=== PATIENT | male | born 1940 | race Two or more races ===

== ENCOUNTER 2021-04-08 23:00 | Inpatient (IN) | payer MEDICARE, BC ==
[2021-04-09 00:53] VITALS: BMI 26.2
[2021-04-09] MEDS ORDERED: Dextrose 5% in Water 1,000 ML IV PRN (05:50)
[2021-04-09] MEDS ORDERED: Dextrose 50% Abboject 50 ML SYRINGE SLOW IVP PRN (05:50)
[2021-04-09] MEDS ORDERED: HumaLOG 300 UNITS/3 ML VIAL SC PRN ×2 (05:50)
[2021-04-09] MEDS ORDERED: Acetaminophen 650 MG Suppository PR PRN (05:52)
[2021-04-09] MEDS ORDERED: Acetaminophen 325 MG TAB PO PRN (05:52)
[2021-04-09] MEDS ORDERED: Ondansetron ODT 4 MG TAB PO PRN (05:52)
[2021-04-09] MEDS ORDERED: Ondansetron PF 4 MG/2 ML Vial IVP PRN (05:52)
[2021-04-09 08:11] LABS: #Eosinphils 0.2 thou/uL (0.0-0.7); #Lymphocytes 1.2 thou/uL (1.20-3.40); #Monocytes 0.9 thou/uL (0.11-0.59); #Neutrophils 5.1 thou/uL (1.40-6.50); %Basophils 0.1 % (0.0-1.0); %Eosinophils 2.1 % (0.0-10.0); %Lymphocytes 15.9 % (21.0-51.0); %Monocytes 12.4 % (0.0-10.0); %Neutrophils 69.4 % (42.0-75.0); Hemoglobin 8.1 g/dL (14.0-18.0); Mean Corpuscular HGB CONC 32.7 g/dL (32.0-36.0); Mean Corpuscular Hemoglobin 30.6 pg (27.0-31.0); Mean Corpuscular Volume 93.7 fL (78.0-98.0); Mean Platelet Volume 8.8 fL (7.4-10.4); Platelet Count 176 thou/uL (130-400); RBC Distribution Width 13.7 % (11.5-14.5); Red Blood Cell (RBC) Count 2.66 mill/uL (4.70-6.10); White Blood Cell (WBC) Count 7.4 thou/uL (4.8-10.8)
[2021-04-09 08:31] LABS: Anion Gap 14 mmol/L (10-20); BUN (Urea Nitrogen) 106 mg/dL (8.4-25.7); Calc. Creatinine Clearance 13 mL/min (70-130); Carbon Dioxide 24 mmol/L (23-31); Chloride 101 mmol/L (98-107); Potassium 4.9 mmol/L (3.5-5.1); Sodium 134 mmol/L (136-145)
[2021-04-09 08:32] LABS: ALT (SGPT) Less than 7 U/L (8-55); AST (SGOT) 13 U/L (5-34); Albumin 3.1 g/dL (3.4-4.8); Alkaline Phosphatase 68 U/L (40-110); Bilirubin, Total 0.9 mg/dL (0.2-1.2); Calcium 8.6 mg/dL (7.8-10.44); Globulin 2.9 g/dL (2.4-3.5); Glucose 85 mg/dL (83-110)
[2021-04-09] MEDS: cefTRIAXone\\ROCEPHIN 1 GM in Sodium Chloride 0.9% 100 ML IVPB SCH (08:34)
[2021-04-09] MEDS: Azithromycin 500 MG in Sodium Chloride 0.9% 250 ML 250 ML IVPB SCH (10:17)
[2021-04-09 10:55] LABS: INR-International Normal Ratio 1.3; Prothrombin Time 16.3 sec (12.0-14.7)
[2021-04-09 10:56] LABS: PTT 41.2 sec (22.9-36.1)
[2021-04-09 10:59] LABS: Anion Gap 14 mmol/L (10-20); BUN (Urea Nitrogen) 104 mg/dL (8.4-25.7); Calc. Creatinine Clearance 13 mL/min (70-130); Calcium 8.5 mg/dL (7.8-10.44); Carbon Dioxide 23 mmol/L (23-31); Chloride 102 mmol/L (98-107); Glucose 139 mg/dL (83-110); Potassium 4.8 mmol/L (3.5-5.1); Sodium 134 mmol/L (136-145)
[2021-04-09] MEDS ORDERED: Carbidopa/Levodopa 25-100 mg Tablet PO SCH (17:45)
[2021-04-09] MEDS ORDERED: Levothyroxine Sodium 100 MCG TAB PO SCH (17:45)
[2021-04-09] MEDS: Sodium Chloride 0.9% 1,000 ML IV SCH (18:30)
[2021-04-09 18:58] LABS: SARS-CoV-2 PCR by NAA Not Detected (NotDetected)
[2021-04-09 19:51] LABS: SARS-CoV-2 IgG Ab Non-Reactive (NonReactive)
[2021-04-09 19:57] LABS: SARS-CoV-2 IgG Index 0.15 S/CO (< 1.40)
[2021-04-09] MEDS: Carbidopa/Levodopa 25-100 mg Tablet PO SCH (21:13)
[2021-04-10] MEDS: Sodium Chloride 0.9% 1,000 ML IV SCH ×2 (03:36→04:47)
[2021-04-10] MEDS: Levothyroxine Sodium 100 MCG TAB PO SCH (04:52)
[2021-04-10] MEDS: Carbidopa/Levodopa 25-100 mg Tablet PO SCH ×3 (08:10→20:32)
[2021-04-10] MEDS: cefTRIAXone\\ROCEPHIN 1 GM in Sodium Chloride 0.9% 100 ML IVPB SCH (08:10)
[2021-04-10] MEDS: Azithromycin 500 MG in Sodium Chloride 0.9% 250 ML 250 ML IVPB SCH (08:10)
[2021-04-10 08:19] LABS: #Eosinphils 0.1 thou/uL (0.0-0.7); #Lymphocytes 0.8 thou/uL (1.20-3.40); #Monocytes 0.8 thou/uL (0.11-0.59); #Neutrophils 4.8 thou/uL (1.40-6.50); %Basophils 0.3 % (0.0-1.0); %Eosinophils 2.1 % (0.0-10.0); %Lymphocytes 12.7 % (21.0-51.0); %Monocytes 11.5 % (0.0-10.0); %Neutrophils 73.5 % (42.0-75.0); Hemoglobin 8.2 g/dL (14.0-18.0); Mean Corpuscular Hemoglobin 31.2 pg (27.0-31.0); Mean Corpuscular Volume 94.4 fL (78.0-98.0); Mean Platelet Volume 8.7 fL (7.4-10.4); Platelet Count 173 thou/uL (130-400); RBC Distribution Width 13.7 % (11.5-14.5); Red Blood Cell (RBC) Count 2.64 mill/uL (4.70-6.10); White Blood Cell (WBC) Count 6.6 thou/uL (4.8-10.8)
[2021-04-10 08:33] LABS: Bilirubin Negative (Negative); Blood, Urine 1+ (Negative); Clarity Clear (Clear); Glucose, Urine (Dipstick) Normal (Negative); Ketone, Urine Negative (Negative); Leukocyte 250 Leu/uL (Negative); Nitrite Negative (Negative); Protein, Urine (Dipstick) 70 mg/dL (Neg-Trace); Specific Gravity, Urine 1.014 (1.002-1.036); Squamous Epithelial None Seen HPF (0-3); Urobilinogen Normal mg/dL (Less than 2)
[2021-04-10 08:34] LABS: Bacteria/HPF Rare-Few HPF (None Seen)
[2021-04-10 08:34] LABS: Anion Gap 16 mmol/L (10-20); BUN (Urea Nitrogen) 92 mg/dL (8.4-25.7); Calc. Creatinine Clearance 14 mL/min (70-130); Calcium 8.4 mg/dL (7.8-10.44); Carbon Dioxide 20 mmol/L (23-31); Chloride 105 mmol/L (98-107); Glucose 85 mg/dL (83-110); Potassium 4.7 mmol/L (3.5-5.1); Sodium 136 mmol/L (136-145)
[2021-04-10 08:36] LABS: Urine Culture Reflex Yes Yes
[2021-04-10 08:58] LABS: Creatinine, Urine 62.82 mg/dL (63-166)
[2021-04-10] MEDS ORDERED: Sodium Bicarbonate 75 MEQ in Sodium Chloride 0.45% 1,000 ML IV SCH (14:00)
[2021-04-10] MEDS ORDERED: Amiodarone 200 MG TAB PO SCH (17:00)
[2021-04-10] MEDS ORDERED: Cefdinir 300 MG CAP PO SCH (21:00)
[2021-04-11] MEDS ORDERED: Sodium Bicarbonate 75 MEQ in Sodium Chloride 0.45% 1,000 ML IV SCH (02:47)
[2021-04-11] MEDS: Levothyroxine Sodium 100 MCG TAB PO SCH (06:00)
[2021-04-11 06:50] LABS: #Eosinphils 0.2 thou/uL (0.0-0.7); #Monocytes 0.8 thou/uL (0.11-0.59); #Neutrophils 7.1 thou/uL (1.40-6.50); %Basophils 0.2 % (0.0-1.0); %Eosinophils 2.6 % (0.0-10.0); %Lymphocytes 10.5 % (21.0-51.0); %Monocytes 8.3 % (0.0-10.0); %Neutrophils 78.3 % (42.0-75.0); Hemoglobin 9.8 g/dL (14.0-18.0); Mean Corpuscular HGB CONC 32.7 g/dL (32.0-36.0); Mean Corpuscular Hemoglobin 30.9 pg (27.0-31.0); Mean Corpuscular Volume 94.4 fL (78.0-98.0); Mean Platelet Volume 8.8 fL (7.4-10.4); Platelet Count 202 thou/uL (130-400); RBC Distribution Width 13.9 % (11.5-14.5); Red Blood Cell (RBC) Count 3.17 mill/uL (4.70-6.10)
[2021-04-11 07:10] LABS: Albumin 3.2 g/dL (3.4-4.8); Anion Gap 15 mmol/L (10-20); BUN (Urea Nitrogen) 79 mg/dL (8.4-25.7); BUN/Creatinine Ratio 17.71; Calc. Creatinine Clearance 16 mL/min (70-130); Calcium 9.1 mg/dL (7.8-10.44); Carbon Dioxide 22 mmol/L (23-31); Chloride 102 mmol/L (98-107); Glucose 107 mg/dL (83-110); Phosphorus 4.7 mg/dL (2.3-4.7); Potassium 4.5 mmol/L (3.5-5.1); Sodium 134 mmol/L (136-145)
[2021-04-11] MEDS: Amiodarone 200 MG TAB PO SCH ×2 (08:46→16:58)
[2021-04-11] MEDS: Carbidopa/Levodopa 25-100 mg Tablet PO SCH ×3 (08:47→20:30)
[2021-04-11] MEDS: Cefdinir 300 MG CAP PO SCH (08:47)
[2021-04-11] MEDS ORDERED: Fluticasone Propionate Nasal Spray 16 gm Bottle NASAL SCH (09:00)
[2021-04-11] MEDS: Fluticasone Propionate Nasal Spray 16 gm Bottle NASAL SCH ×2 (10:18→21:12)
[2021-04-11] MEDS ORDERED: Furosemide 40 MG/4 ML VIAL SLOW IVP SCH (10:59)
[2021-04-11] MEDS ORDERED: Zinc Sulfate 220 MG CAP PO SCH (12:30)
[2021-04-11] MEDS ORDERED: Ascorbic Acid 500 mg Chewable Tablet PO SCH (12:30)
[2021-04-11] MEDS ORDERED: Docusate 100 MG CAP PO SCH (20:45)
[2021-04-12] MEDS: Levothyroxine Sodium 100 MCG TAB PO SCH (05:30)
[2021-04-12] MEDS ORDERED: Ascorbic Acid 500 mg Chewable Tablet PO SCH (09:00)
[2021-04-12] MEDS: Carbidopa/Levodopa 25-100 mg Tablet PO SCH ×3 (09:16→21:31)
[2021-04-12] MEDS: Zinc Sulfate 220 MG CAP PO SCH (09:16)
[2021-04-12] MEDS: Cefdinir 300 MG CAP PO SCH (09:16)
[2021-04-12] MEDS: Amiodarone 200 MG TAB PO SCH ×2 (09:16→15:08)
[2021-04-12] MEDS: Docusate 100 MG CAP PO SCH (09:17)
[2021-04-12] MEDS: Ascorbic Acid 500 mg Chewable Tablet PO SCH (09:17)
[2021-04-12] MEDS: Fluticasone Propionate Nasal Spray 16 gm Bottle NASAL SCH ×3 (09:18→21:50)
[2021-04-12] MEDS ORDERED: FLU VACC QS2021-22(65YR UP)/PF 240 MCG/0.7 ML SYRINGE IM ONE (09:30)
[2021-04-12] MEDS ORDERED: Tamsulosin HCl 0.4 MG CAP PO SCH ×3 (10:30→21:30)
[2021-04-12] MEDS ORDERED: Finasteride 5 MG TAB PO SCH (10:30)
[2021-04-12 12:25] LABS: #Eosinphils 0.1 thou/uL (0.0-0.7); #Lymphocytes 0.6 thou/uL (1.20-3.40); #Monocytes 0.8 thou/uL (0.11-0.59); #Neutrophils 7.2 thou/uL (1.40-6.50); %Basophils 0.4 % (0.0-1.0); %Eosinophils 1.4 % (0.0-10.0); %Lymphocytes 6.8 % (21.0-51.0); %Monocytes 8.5 % (0.0-10.0); %Neutrophils 82.8 % (42.0-75.0); Hemoglobin 9.3 g/dL (14.0-18.0); Mean Corpuscular HGB CONC 32.9 g/dL (32.0-36.0); Mean Corpuscular Volume 94.4 fL (78.0-98.0); Mean Platelet Volume 8.8 fL (7.4-10.4); Platelet Count 217 thou/uL (130-400); RBC Distribution Width 13.9 % (11.5-14.5); Red Blood Cell (RBC) Count 2.98 mill/uL (4.70-6.10); White Blood Cell (WBC) Count 8.7 thou/uL (4.8-10.8)
[2021-04-12 12:43] LABS: Albumin 3.2 g/dL (3.4-4.8); Phosphorus 4.7 mg/dL (2.3-4.7)
[2021-04-12 12:46] LABS: Anion Gap 15 mmol/L (10-20); BUN (Urea Nitrogen) 81 mg/dL (8.4-25.7); Calc. Creatinine Clearance 16 mL/min (70-130); Carbon Dioxide 20 mmol/L (23-31); Chloride 105 mmol/L (98-107); Glucose 152 mg/dL (83-110); Magnesium 1.8 mg/dL (1.6-2.6); Potassium 5.3 mmol/L (3.5-5.1); Sodium 135 mmol/L (136-145)
[2021-04-12] MEDS ORDERED: Torsemide 20 MG TAB PO SCH (13:15)
[2021-04-12] MEDS: Sodium Bicarbonate Tab 325 MG TAB PO SCH (21:30)
[2021-04-12] MEDS: Apixaban 2.5 MG TAB PO SCH (21:31)
[2021-04-13] MEDS: Levothyroxine Sodium 100 MCG TAB PO SCH (06:17)
[2021-04-13 07:47] LABS: Anion Gap 15 mmol/L (10-20); BUN (Urea Nitrogen) 82 mg/dL (8.4-25.7); Calc. Creatinine Clearance 16 mL/min (70-130); Calcium 8.3 mg/dL (7.8-10.44); Carbon Dioxide 23 mmol/L (23-31); Chloride 104 mmol/L (98-107); Glucose 102 mg/dL (83-110); Potassium 4.6 mmol/L (3.5-5.1); Sodium 137 mmol/L (136-145)
[2021-04-13 07:57] LABS: Iron 31 ug/dL (65-175); Iron Binding Capacity, Total 220 mcg/dL (261-462)
[2021-04-13] MEDS: Sodium Bicarbonate Tab 325 MG TAB PO SCH ×2 (08:07→20:09)
[2021-04-13] MEDS: Ascorbic Acid 500 mg Chewable Tablet PO SCH (08:07)
[2021-04-13] MEDS: Amiodarone 200 MG TAB PO SCH ×2 (08:07→16:35)
[2021-04-13] MEDS: Docusate 100 MG CAP PO SCH (08:07)
[2021-04-13] MEDS: Zinc Sulfate 220 MG CAP PO SCH (08:07)
[2021-04-13] MEDS: Apixaban 2.5 MG TAB PO SCH ×2 (08:07→20:08)
[2021-04-13] MEDS: Torsemide 20 MG TAB PO SCH (08:08)
[2021-04-13] MEDS: Tamsulosin HCl 0.4 MG CAP PO SCH ×2 (08:08→20:09)
[2021-04-13] MEDS: Cefdinir 300 MG CAP PO SCH (08:09)
[2021-04-13] MEDS: Finasteride 5 MG TAB PO SCH (08:10)
[2021-04-13] MEDS: Fluticasone Propionate Nasal Spray 16 gm Bottle NASAL SCH ×2 (08:20→20:16)
[2021-04-13] MEDS: Carbidopa/Levodopa 25-100 mg Tablet PO SCH ×3 (09:47→20:07)
[2021-04-13] MEDS ORDERED: Melatonin 3 MG TAB PO PRN (10:29)
[2021-04-13] MEDS ORDERED: EPOETIN ALFA-EPBX (ESRD) 10,000 UNIT/ML VIAL IVP SCH (10:30)
[2021-04-13] MEDS ORDERED: Iron, Sodium Ferric Gluconate 250 MG in Sodium Chloride 0.9% 250 ML 250 ML IVPB SCH (10:30)
[2021-04-14] MEDS: Levothyroxine Sodium 100 MCG TAB PO SCH (05:31)
[2021-04-14] MEDS ORDERED: Iron, Sodium Ferric Gluconate 250 MG in Sodium Chloride 0.9% 250 ML 250 ML IVPB SCH (07:15)
[2021-04-14 07:37] LABS: Albumin 2.9 g/dL (3.4-4.8); Anion Gap 13 mmol/L (10-20); BUN (Urea Nitrogen) 78 mg/dL (8.4-25.7); BUN/Creatinine Ratio 16.63; Calc. Creatinine Clearance 16 mL/min (70-130); Calcium 8.6 mg/dL (7.8-10.44); Carbon Dioxide 23 mmol/L (23-31); Chloride 103 mmol/L (98-107); Glucose 131 mg/dL (83-110); Phosphorus 5.1 mg/dL (2.3-4.7); Potassium 4.6 mmol/L (3.5-5.1); Sodium 134 mmol/L (136-145)
[2021-04-14] MEDS: Sodium Bicarbonate Tab 325 MG TAB PO SCH (08:05)
[2021-04-14] MEDS: Docusate 100 MG CAP PO SCH (08:05)
[2021-04-14] MEDS: Finasteride 5 MG TAB PO SCH (08:05)
[2021-04-14] MEDS: Torsemide 20 MG TAB PO SCH (08:05)
[2021-04-14] MEDS: Zinc Sulfate 220 MG CAP PO SCH (08:05)
[2021-04-14] MEDS: Amiodarone 200 MG TAB PO SCH ×2 (08:05→16:25)
[2021-04-14] MEDS: Apixaban 2.5 MG TAB PO SCH (08:05)
[2021-04-14] MEDS: Ascorbic Acid 500 mg Chewable Tablet PO SCH (08:05)
[2021-04-14] MEDS: Tamsulosin HCl 0.4 MG CAP PO SCH (08:05)
[2021-04-14] MEDS: Carbidopa/Levodopa 25-100 mg Tablet PO SCH ×3 (08:06→16:24)
[2021-04-14] MEDS: Fluticasone Propionate Nasal Spray 16 gm Bottle NASAL SCH (08:06)
[2021-04-14] MEDS: RASAGILINE MESYLATE PO SCH ×2 (11:24→11:40)
[2021-04-14] MEDS: Sevelamer Carbonate 800 MG TAB PO SCH ×2 (11:29→16:24)
[2021-04-14 15:54] VITALS: BP 115/69; TEMP 97.5
== END 2021-04-14 17:02 | DRG 193 ==
LOC: T4-A 23:00
PROVIDERS: ADMIT Internal Medicine; ATTEND Internal Medicine
PROC: 0T9B70Z Drainage of Bladder with Drainage Device, Via Natural or Artificial Opening (ICD-10-PCS; principal; 2021-04-09)
PROC: 8E0ZXY6 Isolation (ICD-10-PCS; 2021-04-09)
DX: J18.9 Pneumonia, unspecified organism (principal); I50.33 Acute on chronic diastolic (congestive) heart failure; I13.2 Hypertensive heart and chronic kidney disease with heart failure and with stage 5 chronic kidney disease, or end stage renal disease; R04.2 Hemoptysis; N18.5 Chronic kidney disease, stage 5; N17.9 Acute kidney failure, unspecified; E87.2 Acidosis; E87.1 Hypo-osmolality and hyponatremia; J96.10 Chronic respiratory failure, unspecified whether with hypoxia or hypercapnia; Z20.822 Contact with and (suspected) exposure to COVID-19; Z95.5 Presence of coronary angioplasty implant and graft; E03.9 Hypothyroidism, unspecified; G20 Parkinson's disease; E11.22 Type 2 diabetes mellitus with diabetic chronic kidney disease; E11.51 Type 2 diabetes mellitus with diabetic peripheral angiopathy without gangrene; D63.1 Anemia in chronic kidney disease; N40.1 Benign prostatic hyperplasia with lower urinary tract symptoms; R33.8 Other retention of urine; I48.0 Paroxysmal atrial fibrillation; E86.0 Dehydration; I49.5 Sick sinus syndrome; N14.1 Nephropathy induced by other drugs, medicaments and biological substances; T50.8X5A Adverse effect of diagnostic agents, initial encounter; E86.9 Volume depletion, unspecified; N28.89 Other specified disorders of kidney and ureter; Z79.899 Other long term (current) drug therapy; Z79.01 Long term (current) use of anticoagulants; Z79.890 Hormone replacement therapy; Z95.0 Presence of cardiac pacemaker; Z95.828 Presence of other vascular implants and grafts; Z99.81 Dependence on supplemental oxygen
CPT/HCPCS: 36415; 36416; 71045; 76770; 80048; 80053; 80069; 81001; 82040; 82570; 82728; 83540; 83550; 83735; 83880; 84100; 84156; 84300; 84540; 85025; 85610; 85730; 86769; 87086; J0456; J0696; J1940; J2916; J3490; J7050; Q5105; U0003; U0005